=== PATIENT | female | born 1970 | race Two or more races ===

== ENCOUNTER 2017-11-29 00:02 | Emergency (ER) | payer SELFPAY ==
[2017-11-29] MEDS ORDERED: SODIUM BICARBONATE 8.4% INJ 50ML SYRINGE IV ONE (00:18)
[2017-11-29] MEDS ORDERED: EPINEPHrine HCL 1 MG/10 ML SYRG IV ONE (00:18)
== END 2017-11-29 03:25 | disposition expired ==
LOC: EDBD 00:02 → EDUNIT# 00:02 → ER 00:17
DX: I46.9 Cardiac arrest, cause unspecified (principal); T71.162A Asphyxiation due to hanging, intentional self-harm, initial encounter; Y93.89 Activity, other specified; Y99.8 Other external cause status; Y92.89 Other specified places as the place of occurrence of the external cause
CPT/HCPCS: 92950; 99291; J0171